=== PATIENT | male | born 1985 | race Caucasian/White ===

== ENCOUNTER → 2018-02-27 | Outpatient (CLI) | payer BC ==
[~2018-02-27] MED LIST: NO
[2018-02-27 10:45] LABS: PLATELET COUNT, AUTOMATED 214 K/uL (150-450)
[2018-02-27 11:00] LABS: LDL CHOLESTEROL 108 mg/dl
== END ==
LOC: LAB 10:10
PROVIDERS: ATTEND Physician Assistant
DX: Z00.00 Encounter for general adult medical examination without abnormal findings (principal); F64.0 Transsexualism
CPT/HCPCS: 36415; 82040; 82247; 82310; 82374; 82435; 82465; 82565; 82670; 82947; 83718; 84075; 84132; 84155; 84295; 84403; 84443; 84450; 84460; 84478; 84520; 85025

== ENCOUNTER → 2018-08-01 | Outpatient (CLI) | payer BC | LOC: LAB 09:44 | PROVIDERS: ATTEND Physician Assistant | DX: F64.0 Transsexualism (principal) | CPT/HCPCS: 36415; 82670; 84403 ==